=== PATIENT | male | born 1945 | race African-American/Black ===

== ENCOUNTER 2016-08-31 17:15 | Inpatient (IN) | payer MEDICARE ==
--- NOTE | ~2016-08-31 | CN ---
Consultation Report [facility] [address] [place]. [address] NAME: MAYRA RODRIGUEZ : 45 STATUS : ADM IN [facility]#: [id number] AGE: 70 ADM/REG DATE : 08/31/16 MR#: [id number] REPORT SERV DATE: 09/01/16 DICTATED BY: EBEN BROCK III DATE: 09/01/16 REPORT STATUS : Draft TRANSCRIBED BY: MODBebeto DATE: 09/01/16 CONSULT DATE OF CONSULTATION: This is a consult for Dr. Amor, in Dr. Amor's absence. HISTORY OF PRESENT ILLNESS: The patient is a 70-year-old black male, who was admitted through the emergency room with hypotension and sepsis. He had a stone removed in [place] approximately three to four days prior to admission. He began having pain in the suprapubic area, confusion, and fever. Subsequently, he was brought to the emergency room and his pressures were between 80 and 90. He was resuscitated in the emergency room with fluids and pressors. Cultured and placed on Rocephin. PAST MEDICAL HISTORY: Includes nephrolithiasis. He does have BPH and takes Proscar. FAMILY HISTORY: Positive for hypertension and coronary artery disease. SOCIAL HISTORY: The patient is single. Does not drink or smoke. REVIEW OF SYSTEMS: 12-point review of systems was negative other than noted above, which included abdominal pain, chills, and nausea. PHYSICAL EXAMINATION: VITAL SIGNS: His temperature was 98.3, having come down from 101.7, blood pressure is 104/63, pulse was 80 and regular. GENERAL: He was alert and able to converse with me. HEENT: Unremarkable. NECK: Supple. LUNGS: Clear. Had a regular rate and rhythm without murmur or gallop. ABDOMEN: Soft. Bowel sounds present and active. There was minimal flank tenderness on the left with deep palpation in the left upper quadrant, some tenderness was elicited. No masses were detected. Testicles are descended bilaterally, palpably normal. : Urine is clear at this time. EXTREMITIES: There is no pedal edema. LABORATORY DATA: White count of 25,000, hemoglobin was 8.7, creatinine was 4.5, and is now down to 2.87. Urinalysis was inflammatory, culture was done, the urine showing gram- negative rods. Blood cultures were positive for E. coli. Sensitivities are pending. A CT scan was done and reviewed by me and the stent was in good position. There was no hydronephrosis. There was a good bit of stranding on the left as opposed to the right. IMPRESSION: Urosepsis. There does not appear to be any obstruction. The stent is in good position. His admitting white count was 4.2, is now up to 25,000 which better reflects the Consultation Report [address] [place]. [address] NAME: MAYRA RODRIGUEZ : 45 STATUS : ADM IN PAT#: [id number] AGE: 70 ADM/REG DATE : 08/31/16 MR#: [id number] REPORT SERV DATE: 09/01/16 DICTATED BY: EBEN BROCK III DATE: 09/01/16 REPORT STATUS : Draft TRANSCRIBED BY: THERESA DATE: 09/01/16 sepsis. His creatinine has improved with fluids and his disoriented state is improving as well. RECOMMENDATIONS: Would be to await the sensitivities, continue present therapy, and Dr. Amor will follow up with him in the morning. OB/MODL Eben Brock III, M.D. / [id number] CC: Avelino Banks MD
--- NOTE | ~2016-08-31 | DS ---
Discharge Summary [facility] [address] [place]. [address] NAME: MAYRA RODRIGUEZ : 45 STATUS : DIS IN PAT#: [id number] AGE: 70 ADM/REG DATE : 08/31/16 MR#: [id number] REPORT SERV DATE: 09/06/16 DICTATED BY: DATE: REPORT STATUS : Draft TRANSCRIBED BY: MODL DATE: 09/05/16 ADMISSION DATE: 08/31/2016 DISCHARGE DATE: 09/05/2016 The patient was admitted to the [facility]. LINUX ADMINISTRATOR: Dr. Avelino banks, Dr.Ann Yates, Dr. Baldemar Waite of nephrology, and Dr. Wes Amor of Urology. The patient was discharged from the Hospitalist Service. DISCHARGE DIAGNOSES: 1. Septic shock, resolved. 2. Acute infectious encephalopathy, resolved. 3. Escherichia coli urinary tract infection, fluoroquinolone resistant. 4. Left-sided pyelonephritis. 5. Escherichia coli bacteremia, fluoroquinolone resistant. 6. Recent left-sided nephrolithiasis with stone retrieval and stent placement. 7. Benign prostatic hypertrophy. IMAGIN. Portable chest x-ray, 08/31/2016, shows right basilar airspace disease representing atelectasis or pneumonia. 2. Portable chest x-ray, 08/31/2016, after central line placement shows right-sided jugular line. No pneumothorax. 3. Stone protocol CT, 09/01/2016, bladder wall-thickening and surrounding inflammation consistent with cystitis. Inflammation surrounding the left kidney consistent with pyelonephritis. Left ureteral stent with no current hydronephrosis, no stone seen along the course of the stent. Small stones in the left bladder diverticulum. Nonobstructing stone in the left renal lower pole. Bilateral fat containing inguinal hernias. Fatty infiltration of the liver. PERTINENT LABS: Urinalysis showing large leukocyte esterase, 19 red blood cells, greater than 182 white blood cells with many clumps and many bacteria. Subsequent culture growing greater than 100,000 colony-forming units of fluoroquinolone resistant E. coli. Blood cultures, 2/2 positive for fluoroquinolone resistant E. coli. Initial white blood cell count 4.2, then increased to 25.3. 7.1 at the time of discharge. Hemoglobin, slightly low, but stable throughout hospitalization at 9.8. Creatinine initially 4.7, 1.2 at discharge. Procalcitonin initially greater than 200, 26.3 when rechecked subsequent in hospitalization. Initial lactic acid level 4.2, normal at discharge. Serum protein electrophoresis, negative. BRIEF HISTORY: For full details, please see the previously dictated history of present illness by Dr. Avelino Banks. The patient is a 70-year-old -[place] male with medical history of recent renal stone, status post retrieval and stent placement three days prior to admission. Following the procedure, he began developing right lower quadrant abdominal Discharge Summary [address] [place] [place]. [address] NAME: MAYRA RODRIGUEZ : 45 STATUS : DIS IN PAT#: [id number] AGE: 70 ADM/REG DATE : 08/31/16 MR#: [id number] REPORT SERV DATE: 09/06/16 DICTATED BY: DATE: REPORT STATUS : Draft TRANSCRIBED BY: MODL DATE: 09/05/16 pain, suprapubic pain, decreased urinary output, fevers, disorientation, and confusion. He was brought to the [facility] Emergency Department by EMS where he was found to have evidence of an acute urinary tract infection and septic shock despite IV fluid resuscitation. HOSPITAL COURSE: The patient was admitted to the intensive care unit from 08/31/2016 through 09/04/2016. Please reference their progress notes for complete details. Essentially, the patient was placed on Levophed for blood pressure support, and this was able to be weaned off after 24 to 48 hours of IV fluids and appropriate antibiotics. His initial antibiotic with meropenem, which was changed to Ancef on 09/04/2016 for available culture data and susceptibilities. The patient was seen by both Nephrology and Urology during the hospitalization. His creatinine improved with IV fluid resuscitation. No urologic procedure was required at this admission as stone protocol CT demonstrated that the previously placed left ureteral stent was intact. I assumed care of the patient when he transferred to [address] [place] [address] on 09/05/2016, and he reported feeling very well with no nausea, vomiting, pain, fevers, confusion, and normalization of all labs and vital signs. Thus, he was felt stable for discharge home to complete an additional 10 days of oral antibiotics as recommended by Urology. Because there was some question of whether acute urinary retention could have factored into his presenting symptoms as well, and per the patient request, he was discharged with a Amor catheter in place. He will need to follow up with his urologist in [place] within the week. DISCHARGE DISPOSITION: Home with family with no specific activity or dietary restrictions. His Amor catheter remains at discharge as above with followup within the week with his urologist in [place]. DISCHARGE MEDICATIONS: 1. B12 1000 mcg IM weekly. 2. Colace 100 mg p.o. twice a day p.r.n. constipation. 3. Finasteride 5 mg p.o. daily. 4. Sodium bicarbonate 650 mg p.o. three times daily. 5. Ditropan 5 mg p.o. twice a day p.r.n. bladder spasm. 6. Augmentin 875/125 mg p.o. b.i.d. for 10 days, prescription was provided. 30 minutes was spent in completion of this discharge. The patient did not know the name of his urologist or primary care provider to send copies of the report to. CHESTER/THERESA Richy Clayton M.D. / [id number] Discharge Summary [address] [address] NAME: MAYRA RODRIGUEZ : 45 STATUS : DIS IN PAT#: [id number] AGE: 70 ADM/REG DATE : 08/31/16 MR#: [id number] REPORT SERV DATE: 09/06/16 DICTATED BY: DATE: REPORT STATUS : Draft TRANSCRIBED BY: THERESA DATE: 09/05/16 CC: Richy Clayton M.D.
--- NOTE | ~2016-08-31 | CN ---
Consultation Report [facility] [address] [place]. [address] NAME: MAYRA RODRIGUEZ : 45 STATUS : ADM IN [facility]#: [id number] AGE: 70 ADM/REG DATE : 08/31/16 MR#: [id number] REPORT SERV DATE: 09/01/16 DICTATED BY: ALISA GOLDBERG DATE: 09/01/16 REPORT STATUS : Draft TRANSCRIBED BY: MODL DATE: 09/01/16 NEPHROLOGY CONSULTATION DATE OF CONSULTATION: 09/01/2016 INDICATION FOR CONSULTATION: Acute kidney injury. HISTORY OF PRESENT ILLNESS: Mr. Rodriguez is a 70-year-old male, who presented to the emergency room with abdominal pain, fever, and decreasing urine output. He is from [place] and apparently had recent removal of a kidney stone and they placed a Amor catheter, which remained in place for two weeks. Following removal of the Amor catheter, he indicates that he developed problems with passing his urine. He denied any fever and chills at home. At presentation, his creatinine was 4.69 and his blood pressure was in the 70s. Currently, he has been volume expanded and remains on Levophed at 5 mcg. His urine output is good. His creatinine has decreased to 2.87. PAST MEDICAL HISTORY: Negative excluding kidney stones. FAMILY HISTORY: Positive for hypertension, coronary artery disease. ALLERGIES: HEADACHE POWDER. HOME MEDICATIONS: Recent medications, vitamin B12, Colace, Proscar, Ditropan, sodium bicarb. 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 No tobacco use for eight years, previously two packs per day smoker for forty eight years. No alcohol use or illicit drugs. REVIEW OF SYSTEMS: HEENT: No change in visual acuity. No epistaxis. No otic infection. No pharyngitis. PULMONARY: Denies shortness of breath, cough, hemoptysis. CARDIAC: No chest pain. No lower extremity edema. No dizziness. GI: Notes some abdominal pain. No nausea, vomiting, melena, but he has had constipation. : Recent decrease in urine output. Urine growing gram-negative bacilli. MUSCULOSKELETAL: No arthralgias. INTEGUMENT: No skin rash. No itching. NEUROLOGIC: No lateralizing weakness or seizure activity. Remainder of 12-point review of systems was negative. PHYSICAL EXAMINATION: VITAL SIGNS: Temp on admission 101.7, pulse was 111, respiratory rate 22, blood pressure 89/60. GENERAL: Pleasant elderly male, conversive, denies pain. Consultation Report [facility] [id number] [place]. [address] NAME: MAYRA RODRIGUEZ : 45 STATUS : ADM IN [facility]#: [id number] AGE: 70 ADM/REG DATE : 08/31/16 MR#: [id number] REPORT SERV DATE: 09/01/16 DICTATED BY: ALISA GOLDBERG DATE: 09/01/16 REPORT STATUS : Draft TRANSCRIBED BY: MODL DATE: 09/01/16 HEENT: Pupils are equal, reactive to light and accommodation. Nares patent. No discharge. Throat, no injection. Mucous membranes moist. NECK: No thyromegaly, masses, bruits. CHEST/LUNGS: Few late crackles posteriorly. No wheezing. No dullness. CARDIAC: Regular rate and rhythm. No murmur, gallop, or rub. ABDOMEN: Mild distention. Bowel sounds present. No guarding. No hepatosplenomegaly. : Indwelling Amor. RECTAL: Not performed. EXTREMITIES: No edema. No calf tenderness. DERMIS: No rash. He does have some vitiligo changes at the base of his neck. NEUROLOGIC: Cranial nerves intact. No lateralizing weakness. MUSCULOSKELETAL: No deformity. IMPRESSION: 1. Acute kidney injury, unknown baseline creatinine likely due to hypotension and sepsis resulting in acute tubular necrosis. 2. Nephrolithiasis with recent stone removal. 3. Escherichia coli sepsis with shock. 4. Urinary tract infection. 5. Metabolic acidosis. PLAN: 1. Concur with pleasant therapy. The patient is now on Maxipime. 2. Labs. CG/MODL Alisa Goldberg M.D. / [id number] CC: Avelino Banks MD
--- NOTE | ~2016-08-31 | HP ---
History And Physical [facility] [id number] [place]. [address] NAME: MAYRA RODRIGUEZ : 45 STATUS : ADM IN [facility]#: [id number] AGE: 70 ADM/REG DATE : 08/31/16 MR#: [id number] REPORT SERV DATE: 09/01/16 DICTATED BY: BEATRICE BANKS DATE: 09/01/16 REPORT STATUS : Draft TRANSCRIBED BY: MODBebeto DATE: 09/01/16 DATE OF ADMISSION: 08/31/2016 CHIEF COMPLAINT: Decreased urine. HISTORY OF PRESENT ILLNESS: The patient is a 70-year-old, gentleman with past medical history of recent kidney stone, status post removal, and no other significant past medical history who presented to the emergency room tonight with complaints of abdominal pain. The patient was in his usual state of health and had a kidney stone removed he says 3 days ago. He said initially he did well from that standpoint, but then over the weekend started developing some right lower quadrant abdominal pain as well as suprapubic pain which was associated with decreased urine output. He denies any yessenia dysuria or foul- smelling urine. He denies any fevers at home though he was febrile in the emergency room here. His family then called EMS because they felt like he was becoming a little more disoriented and confused today and so they brought him to the emergency room. Here, he was found to have evidence of urinary tract infection with a fever and also was still hypotensive with a systolic blood pressure in the 80s despite 3 L of IV fluids so a central line was placed and he was admitted to the ICU for further management of his septic shock. PAST MEDICAL HISTORY: 1. History of nephrolithiasis, status post stone removal 3 days ago. 2. No other past medical history per the patient. HOME MEDICATIONS: See medication reconciliation form. ALLERGIES: NO KNOWN DRUG ALLERGIES. SOCIAL HISTORY: No tobacco, alcohol, or IV drug abuse. FAMILY HISTORY: Father with history of coronary artery disease. REVIEW OF SYSTEMS: Ten-point review of systems negative except as mentioned in the HPI. PHYSICAL EXAMINATION: VITAL SIGNS: Temperature 101.7, heart rate 111, respiratory rate 22, and blood pressure 89/60. GENERAL: An elderly-appearing gentleman in no acute distress. HEENT: Pupils equal, round, and reactive to light. Extraocular movements intact. Oropharynx is clear. Moist mucous membranes. NECK: Supple. Nontender. No lymphadenopathy. No thyromegaly. No jugular venous distention. LUNGS: Clear to auscultation bilaterally. CARDIOVASCULAR: Tachycardic. No murmurs, rubs, or gallops. ABDOMEN: Soft, nontender, and nondistended. Positive bowel sounds. No hepatosplenomegaly. EXTREMITIES: No cyanosis, clubbing, or edema. History And Physical [address] [place]. [address] NAME: MAYRA RODRIGUEZ : 45 STATUS : ADM IN PAT#: [id number] AGE: 70 ADM/REG DATE : 08/31/16 MR#: [id number] REPORT SERV DATE: 09/01/16 DICTATED BY: BEATRICE BANKS DATE: 09/01/16 REPORT STATUS : Draft TRANSCRIBED BY: THERESA DATE: 09/01/16 NEUROLOGIC: Alert and oriented x3. Cranial nerves intact. PSYCH: Mood appropriate. LABS AND IMAGING: Chest x-ray shows right basilar atelectasis. Urinalysis with large leukocyte esterase, greater than 182 white blood cells, and many bacteria. CBC with a white count of 4 and hemoglobin 9.9. Metabolic profile with a BUN of 36 and a creatinine of 4.6. Lactate 4.2, cortisol 35, procalcitonin greater than 200. ASSESSMENT AND PLAN: The patient is a 70-year-old gentleman with a past medical history of recent nephrolithiasis, status post stone removal, who now presents with septic shock, urinary tract infection, and acute renal failure. 1. Septic shock. A central line placed, status post 3 L IV fluids. The patient is still hypotensive. We will start on Levophed to maintain a MAP greater than 65. We will start him on empiric antibiotics and followup cultures. 2. Urinary tract infection. We will start empiric antibiotics and check blood and urine cultures. 3. Acute renal failure. Unclear of the patient's baseline creatinine. We will get both Nephrology and Urology to see the patient in the morning. In the meantime, we will order a renal ultrasound. 4. Total critical care time spent on this patient was 35 minutes. BALWINDER Beatrice Banks MD / [id number] CC: Beatrice Banks MD
[2016-08-31 16:52] LABS: BASOPHILS 0 %; EOSINOPHILS 0.5 %; EOSINOPHILS ABSOLUTE 0.02 10/3/uL (0.0-0.53); ER CBC TAT 0 Hrs 05 Mins; HEMATOCRIT 30.5 % (40.0-51.0); HEMOGLOBIN 9.9 g/dL (13.6-17.8); IMMATURE GRANULOCYTES 0.5 %; IMMATURE GRANULOCYTES ABSOLUTE 0.02 10/3/uL (0.0-0.11); LYMPHOCYTES 12.3 %; LYMPHOCYTES ABSOLUTE 0.51 10/3/uL (0.67-4.30); MEAN CORPUS HGB CONC 32.5 g/dL (32.0-36.0); MEAN CORPUSCULAR HEMOGLOB 25.8 pg (26.0-34.0); MEAN CORPUSCULAR VOLUME 79.4 fL (80-100); MEAN PLATELET VOLUME 8.6 fL (9.2-13.0); MONOCYTES 0.2 %; MONOCYTES ABSOLUTE 0.01 10/3/uL (0.21-1.20); NEUTROPHILS 86.5 %; NEUTROPHILS ABSOLUTE 3.59 10/3/uL (2.02-8.40); PLATELET COUNT 214 10/3/uL (150-400); RBC DISTRIBUTION WIDTH 16.3 % (12.0-16.0); RED CELL COUNT 3.84 10/6/uL (4.7-6.1); WHITE BLOOD CELLS 4.2 10/3/uL (4.5-10.5)
[2016-08-31 16:53] LABS: MANUAL DIFF NO %
[2016-08-31 16:57] LABS: ASCORBIC ACID (UR NOT ORDER) NEG (NEG); BILIRUBIN, URINE NEGATIVE (NEG); ER URINALYSIS TAT 0 Hrs 10 Mins; KETONE, URINE NEGATIVE (NEG); LEUKOCYTE ESTERASE(NOT OR LARGE (NEG); NITRITE (URINE) NEG (NEG)
[2016-08-31 16:58] LABS: WBC (NOT ORDERED) (RFLEX) > 182 (0-5)
[2016-08-31 17:01] LABS: INTERNATIONAL NORMAL RATI 1.3 UNITS (-); PROTIME (NOT ORD) 15.6 SEC (12.0-14.5)
[2016-08-31 17:08] LABS: A/G RATIO 0.5 (0.7-1.9); ALBUMIN 2.5 G/DL (3.5-5.0); ALKALINE PHOSPHATASE 92 U/L (45-117); BUN (BLOOD UREA NITROGEN) 36 MG/DL (6-23); CALCIUM, SERUM 8.2 MG/DL (8.5-10.4); CHLORIDE, SERUM 105 MMOL/L (96-112); CO2 (CARBON DIOXIDE) 23 MMOL/L (24-34); CREATININE 4.69 MG/DL (0.70-1.30); GFR AFRICAN AMERICAN 14 ML/MIN (>=60); GFR NON AFRICAN AMERICAN 12 ML/MIN (>=60); GLOBULIN 4.9 G/DL (2.5-4.1); GLUCOSE, SERUM 95 MG/DL (60-99); POTASSIUM, SERUM 3.7 MMOL/L (3.5-5.3); SGOT(AST) 13 U/L (5-40); SGPT(ALT) 13 U/L (5-65); SODIUM, SERUM 141 MMOL/L (135-148); TOTAL BILIRUBIN 0.5 MG/DL (0-1.2); TOTAL PROTEIN 7.4 G/DL (6.0-8.5)
[~2016-08-31 17:15] MED LIST: B121000P IM; DITRO5 PO; DSS PO; PROSCAR5 PO; SODBICAR10 PO
[2016-09-01 06:54] LABS: HEMOGLOBIN 8.7 g/dL (13.6-17.8); MEAN CORPUS HGB CONC 33.6 g/dL (32.0-36.0); MEAN CORPUSCULAR HEMOGLOB 26.9 pg (26.0-34.0); MEAN CORPUSCULAR VOLUME 79.9 fL (80-100); MEAN PLATELET VOLUME 9.1 fL (9.2-13.0); PLATELET COUNT 206 10/3/uL (150-400); RBC DISTRIBUTION WIDTH 16.5 % (12.0-16.0); RED CELL COUNT 3.24 10/6/uL (4.7-6.1)
[2016-09-01 07:02] LABS: CALCIUM, SERUM 7.6 MG/DL (8.5-10.4); CHLORIDE, SERUM 113 MMOL/L (96-112); CO2 (CARBON DIOXIDE) 20 MMOL/L (24-34); GFR AFRICAN AMERICAN 25 ML/MIN (>=60); GFR NON AFRICAN AMERICAN 21 ML/MIN (>=60); GLUCOSE, SERUM 99 MG/DL (60-99); HEMATOCRIT 25.9 % (40.0-51.0); PHOSPHORUS, SERUM 4.6 MG/DL (2.5-4.5); POTASSIUM, SERUM 4.3 MMOL/L (3.5-5.3); SODIUM, SERUM 143 MMOL/L (135-148); WHITE BLOOD CELLS 25.3 10/3/uL (4.5-10.5)
[2016-09-01 07:03] LABS: MANUAL DIFF YES %
[2016-09-01 07:04] LABS: BUN (BLOOD UREA NITROGEN) 32 MG/DL (6-23); CREATININE 2.87 MG/DL (0.70-1.30)
[2016-09-01 07:42] LABS: BAND NEUTROPHILS 22 %; LYMPHOCYTES 4 %; LYMPHOCYTES ABSOLUTE (CALC) 1.01 10/3/uL (0.67-4.30); MONOCYTES 5 %; MONOCYTES ABSOLUTE (CALC) 1.27 10/3/uL (0.21-1.20); NEUTROPHILS ABSOLUTE (CALC) 23.02 10/3/uL (2.02-8.40); PLATELET ESTIMATE ADQ (ADEQUATE); RBC MORPHOLOGY NORM (NORMAL); SEGMENTED NEUTROPHIL (0) 69 %; TOTAL NUCLEATED CELLS 100
[2016-09-01 07:47] LABS: PROCALCITONIN > 200.00 ng/mL (<0.5)
[2016-09-02 05:15] LABS: BUN (BLOOD UREA NITROGEN) 27 MG/DL (6-23); CALCIUM, SERUM 7.8 MG/DL (8.5-10.4); CHLORIDE, SERUM 111 MMOL/L (96-112); CO2 (CARBON DIOXIDE) 23 MMOL/L (24-34); CREATININE 1.81 MG/DL (0.70-1.30); GFR AFRICAN AMERICAN 43 ML/MIN (>=60); GFR NON AFRICAN AMERICAN 37 ML/MIN (>=60); GLUCOSE, SERUM 75 MG/DL (60-99); PHOSPHORUS, SERUM 2.1 MG/DL (2.5-4.5); POTASSIUM, SERUM 3.7 MMOL/L (3.5-5.3); SODIUM, SERUM 144 MMOL/L (135-148)
[2016-09-02 05:16] LABS: ALBUMIN 1.9 G/DL (3.5-5.0)
[2016-09-02 05:19] LABS: HEMATOCRIT 27.6 % (40.0-51.0); MEAN CORPUS HGB CONC 32.6 g/dL (32.0-36.0); MEAN CORPUSCULAR HEMOGLOB 26.2 pg (26.0-34.0); MEAN CORPUSCULAR VOLUME 80.2 fL (80-100); MEAN PLATELET VOLUME 9.9 fL (9.2-13.0); PLATELET COUNT 224 10/3/uL (150-400); RBC DISTRIBUTION WIDTH 16.5 % (12.0-16.0); RED CELL COUNT 3.44 10/6/uL (4.7-6.1)
[2016-09-02 05:20] LABS: MANUAL DIFF YES %; WHITE BLOOD CELLS 29.3 10/3/uL (4.5-10.5)
[2016-09-02 05:26] LABS: T PROTEIN (ELECT)(NOT OR 5.6 G/DL (6.0-8.5)
[2016-09-02 06:21] LABS: BAND NEUTROPHILS 7 %; LYMPHOCYTES 5 %; LYMPHOCYTES ABSOLUTE (CALC) 1.47 10/3/uL (0.67-4.30); MONOCYTES 3 %; MONOCYTES ABSOLUTE (CALC) 0.88 10/3/uL (0.21-1.20); NEUTROPHILS ABSOLUTE (CALC) 26.96 10/3/uL (2.02-8.40); SEGMENTED NEUTROPHIL (0) 85 %; TOTAL NUCLEATED CELLS 100
[2016-09-02 06:22] LABS: RBC MORPHOLOGY ABN (NORMAL)
[2016-09-02 08:20] LABS: A/G 0.65 RATIO (0.9-2.10); ALB RELATIVE % 39.4 % (60.0-89.0); ALBUMIN (ELECTRO) 2.21 GM/DL (3.2-5.5); ALPHA 1 (ELECTRO) 0.33 GM/DL (0.1-0.4); ALPHA 1 RELAT % (NOT ORD) 5.9 % (1.0-4.0); ALPHA 2 (ELECTRO) 0.77 GM/DL (0.5-1.10); ALPHA 2 RELAT % 13.8 % (4.5-26.0); BETA GLOBULIN (SPE) 0.72 GM/DL (0.60-1.30); BETA RELATIVE % 12.8 % (9.0-22.0); GAMMA GLOBULIN (SPE) 1.57 G/DL (0.70-1.60); GAMMA RELAT % 28.1 % (6.0-22.0)
[2016-09-03 05:18] LABS: ALBUMIN 1.9 G/DL (3.5-5.0); CALCIUM, SERUM 8.1 MG/DL (8.5-10.4); CHLORIDE, SERUM 114 MMOL/L (96-112); CO2 (CARBON DIOXIDE) 22 MMOL/L (24-34); CREATININE 1.41 MG/DL (0.70-1.30); GFR AFRICAN AMERICAN 58 ML/MIN (>=60); GFR NON AFRICAN AMERICAN 50 ML/MIN (>=60); GLUCOSE, SERUM 88 MG/DL (60-99); SODIUM, SERUM 146 MMOL/L (135-148)
[2016-09-03 05:23] LABS: BUN (BLOOD UREA NITROGEN) 23 MG/DL (6-23); PHOSPHORUS, SERUM 2.9 MG/DL (2.5-4.5)
[2016-09-03 05:47] LABS: BASOPHILS 0.2 %; BASOPHILS ABSOLUTE 0.04 10/3/uL (0.0-0.16); EOSINOPHILS 0.7 %; EOSINOPHILS ABSOLUTE 0.15 10/3/uL (0.0-0.53); HEMATOCRIT 28.4 % (40.0-51.0); HEMOGLOBIN 9.2 g/dL (13.6-17.8); IMMATURE GRANULOCYTES 1.4 %; LYMPHOCYTES 9.9 %; LYMPHOCYTES ABSOLUTE 2.17 10/3/uL (0.67-4.30); MEAN CORPUS HGB CONC 32.4 g/dL (32.0-36.0); MEAN CORPUSCULAR HEMOGLOB 25.9 pg (26.0-34.0); MEAN PLATELET VOLUME 10.1 fL (9.2-13.0); MONOCYTES 4.1 %; MONOCYTES ABSOLUTE 0.91 10/3/uL (0.21-1.20); NEUTROPHILS 83.7 %; NEUTROPHILS ABSOLUTE 18.37 10/3/uL (2.02-8.40); PLATELET COUNT 237 10/3/uL (150-400); RBC DISTRIBUTION WIDTH 16.7 % (12.0-16.0); RED CELL COUNT 3.55 10/6/uL (4.7-6.1); WHITE BLOOD CELLS 21.9 10/3/uL (4.5-10.5)
[2016-09-03 05:49] LABS: MANUAL DIFF NO %
[2016-09-04 05:13] LABS: HEMATOCRIT 30.1 % (40.0-51.0); HEMOGLOBIN 9.8 g/dL (13.6-17.8); MEAN CORPUS HGB CONC 32.6 g/dL (32.0-36.0); MEAN CORPUSCULAR HEMOGLOB 26.2 pg (26.0-34.0); MEAN CORPUSCULAR VOLUME 80.5 fL (80-100); MEAN PLATELET VOLUME 9.7 fL (9.2-13.0); PLATELET COUNT 261 10/3/uL (150-400); RBC DISTRIBUTION WIDTH 16.5 % (12.0-16.0); RED CELL COUNT 3.74 10/6/uL (4.7-6.1)
[2016-09-04 05:18] LABS: MANUAL DIFF YES %; WHITE BLOOD CELLS 11.5 10/3/uL (4.5-10.5)
[2016-09-04 05:29] LABS: CALCIUM, SERUM 8.3 MG/DL (8.5-10.4); CHLORIDE, SERUM 111 MMOL/L (96-112); CO2 (CARBON DIOXIDE) 25 MMOL/L (24-34); CREATININE 1.28 MG/DL (0.70-1.30); GFR AFRICAN AMERICAN 65 ML/MIN (>=60); GFR NON AFRICAN AMERICAN 56 ML/MIN (>=60); GLUCOSE, SERUM 87 MG/DL (60-99); PHOSPHORUS, SERUM 3.2 MG/DL (2.5-4.5); POTASSIUM, SERUM 3.9 MMOL/L (3.5-5.3); SODIUM, SERUM 145 MMOL/L (135-148)
[2016-09-04 05:35] LABS: BUN (BLOOD UREA NITROGEN) 17 MG/DL (6-23)
[2016-09-04 07:02] LABS: ANISOCYTOSIS 1+ (5-10/OIF) (0-5/OIF); BAND NEUTROPHILS 1 %; BASOPHILS 3 %; BASOPHILS ABSOLUTE (CALC) 0.35 10/3/uL (0.0-0.16); LYMPHOCYTES 19 %; LYMPHOCYTES ABSOLUTE (CALC) 2.19 10/3/uL (0.67-4.30); MONOCYTES 1 %; MONOCYTES ABSOLUTE (CALC) 0.12 10/3/uL (0.21-1.20); NEUTROPHILS ABSOLUTE (CALC) 8.86 10/3/uL (2.02-8.40); PLATELET ESTIMATE ADQ (ADEQUATE); SEGMENTED NEUTROPHIL (0) 76 %; TOTAL NUCLEATED CELLS 100
[2016-09-05 06:04] LABS: HEMATOCRIT 30.5 % (40.0-51.0); HEMOGLOBIN 9.8 g/dL (13.6-17.8); MEAN CORPUS HGB CONC 32.1 g/dL (32.0-36.0); MEAN CORPUSCULAR HEMOGLOB 25.8 pg (26.0-34.0); MEAN CORPUSCULAR VOLUME 80.3 fL (80-100); MEAN PLATELET VOLUME 9.8 fL (9.2-13.0); PLATELET COUNT 278 10/3/uL (150-400); RBC DISTRIBUTION WIDTH 16.3 % (12.0-16.0); WHITE BLOOD CELLS 7.1 10/3/uL (4.5-10.5)
[2016-09-05 06:06] LABS: MANUAL DIFF YES %
[2016-09-05 06:18] LABS: BUN (BLOOD UREA NITROGEN) 17 MG/DL (6-23); CALCIUM, SERUM 8.3 MG/DL (8.5-10.4); CHLORIDE, SERUM 109 MMOL/L (96-112); CO2 (CARBON DIOXIDE) 26 MMOL/L (24-34); CREATININE 1.24 MG/DL (0.70-1.30); GFR AFRICAN AMERICAN 68 ML/MIN (>=60); GFR NON AFRICAN AMERICAN 59 ML/MIN (>=60); GLUCOSE, SERUM 85 MG/DL (60-99); PHOSPHORUS, SERUM 3.1 MG/DL (2.5-4.5); POTASSIUM, SERUM 4.1 MMOL/L (3.5-5.3); SODIUM, SERUM 144 MMOL/L (135-148)
[2016-09-05 06:46] LABS: EOSINOPHILS 2 %; EOSINOPHILS ABSOLUTE (CALC) 0.14 10/3/uL (0.0-0.53); IMMATURE GRANS ABSOLUTE (CALC) 0.36 10/3/uL (0.0-0.11); LYMPHOCYTES 22 %; LYMPHOCYTES ABSOLUTE (CALC) 1.56 10/3/uL (0.67-4.30); METAMYELOCYTES 5 %; MONOCYTES 11 %; MONOCYTES ABSOLUTE (CALC) 0.78 10/3/uL (0.21-1.20); NEUTROPHILS ABSOLUTE (CALC) 4.26 10/3/uL (2.02-8.40); SEGMENTED NEUTROPHIL (0) 60 %; TOTAL NUCLEATED CELLS 100
[2016-09-05 06:47] LABS: PLATELET ESTIMATE ADQ (ADEQUATE); PROCALCITONIN 26.33 ng/mL (<0.5); RBC MORPHOLOGY NORM (NORMAL)
[2016-09-05] MEDS ORDERED: AUG875 PO (12:30)
== END 2016-09-05 17:18 | disposition home or self-care (01) | DRG 871 ==
LOC: ER 17:15 → CCU 20:55 → 4SO 09-04 14:14
PROVIDERS: Emergency Medicine; Internal Medicine; Internal Medicine Nephrology; Internal Medicine Pulmonary Disease
PROC: 02HV33Z Insertion of Infusion Device into Superior Vena Cava, Percutaneous Approach (ICD-10-PCS; principal; 2016-08-31)
DX: A41.51 Sepsis due to Escherichia coli [E. coli] (principal); R65.21 Severe sepsis with septic shock; N17.0 Acute kidney failure with tubular necrosis; G93.41 Metabolic encephalopathy; N12 Tubulo-interstitial nephritis, not specified as acute or chronic; E87.2 Acidosis; Z87.442 Personal history of urinary calculi; Z16.23 Resistance to quinolones and fluoroquinolones; N40.0 Benign prostatic hyperplasia without lower urinary tract symptoms; Z88.8 Allergy status to other drugs, medicaments and biological substances; Z87.891 Personal history of nicotine dependence; D64.9 Anemia, unspecified
CPT/HCPCS: 71010; 74176; 76775; 80048; 80053; 80069; 81001; 82533; 83605; 83735; 84100; 84145; 84155; 84165; 85025; 85610; 87040; 87077; 87086; 87150; 87186; 87641; 93005; 96361; 96374; 97161-GP; 99291; A9270-GY; C8929; C9113; G8978-CJ-GP; G8979-CI-GP; J0690; J0692; Q9957